=== PATIENT | male | born 1980 | race Caucasian/White ===

== ENCOUNTER 2019-01-20 05:31 | Day surgery (SDC) | payer OTHER ==
[2019-01-20] MEDS ORDERED: LACTATED RINGERS 1,000 ML ONE (09:11)
[2019-01-20] MEDS ORDERED: BUPIVACAINE 0.5% W/EPI 30 ML VIAL INJ ONE (09:30)
[2019-01-20] MEDS ORDERED: ROCURONIUM BROMIDE 10 MG/ML VIAL ONE (10:10)
[2019-01-20] MEDS ORDERED: fentaNYL CITRATE INJ 50 MCG/ML AMP ONE (10:10)
[2019-01-20] MEDS ORDERED: KETAMINE HCL 100 MG/ML VIAL ONE (10:10)
[2019-01-20] MEDS ORDERED: MIDAZOLAM INJ 5 MG/5 ML VIAL ONE (10:10)
[2019-01-20] MEDS ORDERED: SUGAMMADEX SODIUM 200 MG/2 ML VIAL IV ONE (10:35)
[2019-01-20] MEDS ORDERED: LEVALBUTEROL NEBS 1.25 MG/3 ML VIAL NEB ONE ×2 (11:18→11:39)
[2019-01-20] MEDS: LEVALBUTEROL NEBS 1.25 MG/3 ML VIAL NEB PRN ×2 (11:20→11:40)
--- NOTE | 2019-01-20 11:20 | OP ---
DATE OF PROCEDURE: 01/20/19 PREOPERATIVE DIAGNOSIS: 1. Recurrent pilonidal cyst. POSTOPERATIVE DIAGNOSIS: 1. Recurrent pilonidal cyst. PROCEDURE: 1. Excision of pilonidal cyst. SURGEON: Duc Bauman MD. ANESTHESIA: General and local. FINDINGS: Approximately 3 cm tunnel, 3 visible pits were seen. This was inferior to previous scar. No additional distal tracking. COMPLICATIONS: None. ESTIMATED BLOOD LOSS: Minimal. CONDITION: Stable. PLAN: Discharge. INDICATION: As stated. PROCEDURE: General anesthesia was induced in prone, rj-knife position. He was prepped and draped in sterile fashion. Local anesthesia was instilled. We used the probe and got in the deepest tract, which was only about 1 cm deep. It did not track towards the coccyx, but tracked upward. Elliptical incision was made, excising above the probe, unroofing it completely. It was examined. There were no additional tracts apparent. There was excellent hemostasis. More local was placed. It was then packed with damp gauze. He was awakened and taken to Recovery to be discharged. #[id number] [facility]
[2019-01-20] MEDS ORDERED: LACTATED RINGERS 1,000 ML IVS ONE (12:30)
[2019-01-20 13:57] VITALS: BP 109/76; TEMP 96; O2SAT 91
== END 2019-01-20 13:20 | disposition home or self-care (01) ==
LOC: AMB 05:31
PROVIDERS: ATTEND Surgery
DX: L05.91 Pilonidal cyst without abscess (principal); F17.210 Nicotine dependence, cigarettes, uncomplicated; F41.9 Anxiety disorder, unspecified; F32.9 Major depressive disorder, single episode, unspecified; F98.8 Other specified behavioral and emotional disorders with onset usually occurring in childhood and adolescence; Z96.641 Presence of right artificial hip joint; Z79.899 Other long term (current) drug therapy
CPT/HCPCS: 00300; 11770; 94640; J2250; J3010; J7120; J7614

== ENCOUNTER → 2019-03-22 | Outpatient (CLI) | payer OTHER | LOC: LAB.O 09:31 | PROVIDERS: ATTEND Nurse Practitioner Psychiatric/Mental Health | DX: F31.5 Bipolar disorder, current episode depressed, severe, with psychotic features (principal) ==